=== PATIENT | female | born 1965 ===

== ENCOUNTER 2017-11-22 11:30 | Outpatient (CLI) | payer OTHER | END 2017-11-22 11:32 | disposition home or self-care (01) | LOC: LAB 11:30 | DX: Z80.7 Family history of other malignant neoplasms of lymphoid, hematopoietic and related tissues (principal); D68.0 Von Willebrand disease; D51.3 Other dietary vitamin B12 deficiency anemia; D51.8 Other vitamin B12 deficiency anemias; I10 Essential (primary) hypertension; E55.9 Vitamin D deficiency, unspecified; D50.0 Iron deficiency anemia secondary to blood loss (chronic); K90.89 Other intestinal malabsorption; E03.8 Other specified hypothyroidism; D68.8 Other specified coagulation defects; R97.0 Elevated carcinoembryonic antigen [CEA]; C18.9 Malignant neoplasm of colon, unspecified ==

== ENCOUNTER 2022-10-17 10:15 | Outpatient (CLI) | payer OTHER | END 2022-10-17 10:57 | disposition home or self-care (01) | LOC: LAB 10:15 | PROVIDERS: ATTEND Internal Medicine Hematology & Oncology | DX: D50.8 Other iron deficiency anemias (principal); I10 Essential (primary) hypertension; R74.02 Elevation of levels of lactic acid dehydrogenase [LDH]; K76.89 Other specified diseases of liver; D68.8 Other specified coagulation defects; D68.00 Von Willebrand disease, unspecified; D51.8 Other vitamin B12 deficiency anemias; Z80.7 Family history of other malignant neoplasms of lymphoid, hematopoietic and related tissues; D51.3 Other dietary vitamin B12 deficiency anemia ==

== ENCOUNTER → 2023-04-28 10:32 | Outpatient (CLI) | payer OTHER ==
[2023-04-28 12:21] LABS: HEMATOCRIT 37.6 % (36.0-45.00); HEMOGLOBIN 12.5 g/dL (12.0-15.00); MEAN CORPUSCULAR HEMOGLOBIN 28.6 pg (27.00-32.0); MEAN CORPUSCULAR HGB CONC 33.2 g/dl (32.0-36.0); PLATELET COUNT 189 K/uL (150-450); RED BLOOD COUNT 4.37 M/uL (4.00-6.00); RED CELL DISTRIBUTION WIDTH 13.3 % (11.5-14.5)
[2023-04-28 12:43] LABS: PARTIAL THROMBOPLASTIN TIME 30.4 SECONDS (22.0-34.0); PROTHROMBIN TIME 10.5 SECONDS (9.0-11.5)
[2023-04-28 12:46] LABS: BILIRUBIN TOTAL 0.55 mg/dL (0.3-1.2); CREATININE SERUM 0.71 mg/dL (0.55-1.02); GFR 85.15; GLOBULINA 3.3 G/DL (2.4-3.5); POTASSIUM 3.88 mEq/L (3.5-5.1); TOTAL PROTEIN 7.3 gm/dL (6.4-8.2)
[2023-04-28 12:58] LABS: PT 50:50 10.3 SECONDS (9.7-11.4); PTT 50:50 28.2 SECONDS (22.4-33.0)
[2023-04-28 13:59] LABS: FOLIC ACID 14.7 ng/ml (4.78-20)
== END | disposition home or self-care (01) ==
LOC: LAB 10:32
PROVIDERS: ATTEND Internal Medicine Hematology & Oncology
DX: D50.8 Other iron deficiency anemias (principal); I10 Essential (primary) hypertension; R74.02 Elevation of levels of lactic acid dehydrogenase [LDH]; K76.89 Other specified diseases of liver; D51.8 Other vitamin B12 deficiency anemias; D51.1 Vitamin B12 deficiency anemia due to selective vitamin B12 malabsorption with proteinuria; D51.0 Vitamin B12 deficiency anemia due to intrinsic factor deficiency; D68.8 Other specified coagulation defects; Z80.7 Family history of other malignant neoplasms of lymphoid, hematopoietic and related tissues; D68.01 Von Willebrand disease, type 1; D51.3 Other dietary vitamin B12 deficiency anemia